=== PATIENT | female | born 1995 | race Two or more races ===

== ENCOUNTER 2018-05-18 22:42 | Emergency (ER) | payer SELFPAY ==
[2018-05-18 23:10] VITALS: O2SAT 98
[2018-05-18] MEDS ORDERED: Tdap Vaccine 0.5 ml Vial (10-64 yrs) IM ONE (23:53)
--- NOTE | 2018-05-18 23:55 | ED PDOC ---
Upper Extremity Pain/Injury Time Seen by Provider: 05/18/18 23:16 Chief Complaint (Nursing): Abnormal Skin Integrity History Per: Patient Additional Complaint(s): 22 yo F presents c/o laceration to the L 2nd digit after using a knife. Patient admits to drinking alcohol tonight. Denies any numbness, decreased range of motion or any other injury. Reports her tetanus is not up-to-date. Past Medical History Vital Signs: Last Vital Signs Temp 98.2 F 05/18/18 23:08 Pulse 89 05/18/18 23:08 Resp 16 05/18/18 23:08 BP 110/68 05/18/18 23:08 Pulse Ox 98 05/18/18 23:08 - Family History Family History: States: No Known Family Hx - Allergies Allergies/Adverse Reactions: Allergies Allergy/AdvReac Type Severity Reaction Status Date / Time No Known Allergies Allergy Verified 05/18/18 23:11 Review of Systems Constitutional: Negative for: Fever, Malaise Musculoskeletal: Negative for: Hand Pain Skin: Positive for: Other (laceration). Negative for: Rash, Lesions Neurological: Negative for: Weakness, Numbness Physical Exam - Physical Exam Comments: GENERAL APPEARANCE: Patient is awake, alert, oriented x 3, in no acute distress. SKIN: Warm, (-) rash, (-) lesions. UPPER EXTREMITY: (+) 1 cm laceration to the distal lateral aspect of L 2nd digit, (-) tenderness, (-) swelling, (-) ecchymosis, (-) crepitus, (-) deformity. Tendon function intact. (-) distal neurovascular deficit. 2 point discrimination. Remainder of hand, digits and wrist: (-) injury. - ECG O2 Sat by Pulse Oximetry: 98 Medical Decision Making Medical Decision Making: Performed by the PA Location: L 2nd digit Length: 1 cm Description: clean wound edges, no foreign bodies Distal CMS: Normal. No deficits. Neurovascularly intact. Anesthesia: Lidocaine 1% Preparation: The wound was cleaned with NS and Betadine. The area was prepped and draped in the usual sterile fashion. Exploration: The wound was explored and no foreign bodies were found. Procedure: The wound was closed with 3 5:0 nylon. There was good approximation. Post-Procedure: Good closure and hemostasis. The patient tolerated the procedure well and there were no complications. Post procedure dressing applied. Advised to follow up with primary care physician or referral provided in 1-2 days without fail. Instructed on proper wound care. Return to the emergency room at any time for any new or worsening symptoms. Patient states she fully agrees with and understands discharge instructions. States that she agrees with the plan and disposition. Verbalized and repeated discharge instructions and plan. I have given the patient opportunity to ask any additional questions. Disposition - Clinical Impression Clinical Impression: Finger laceration - Patient ED Disposition Is Patient to be Admitted: No Counseled Patient/Family Regarding: Diagnosis, Need For Followup - Disposition Referrals: Jamie Gill MD [Medical Doctor] - Disposition: Routine/Home Disposition Time: 00:00 Condition: STABLE Additional Instructions: Thank you for letting us take care of you today. You were treated for finger laceration. The emergency medical care you received today was directed at your acute symptoms. Clean wound with regular soap and water. Have sutures removed after 7 days. Return to the Emergency Department if your symptoms worsen, do not improve, or if you have any other problems. Please contact your doctor in 2 days for re-evaluation and follow up / or call one of the physicians/clinics you have been referred to that are listed on the Patient Visit Information form that is included in your discharge packet. Bring any paperwork you were given at discharge with you along with any medications you are taking to your follow up visit. Our treatment cannot replace ongoing medical care by a primary care provider (PCP) outside of the emergency department. 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
[2018-05-19] MEDS ORDERED: Tdap Vaccine 0.5 ml Vial (10-64 yrs) IM ONE (00:16)
[2018-05-19 00:38] VITALS: BP 122/70; PULSE 72; RESP 18; TEMP 98
== END 2018-05-19 00:40 | disposition home or self-care (01) ==
LOC: H.ER 22:42
DX: S61.211A Laceration without foreign body of left index finger without damage to nail, initial encounter (principal); W26.0XXA Contact with knife, initial encounter; Z23 Encounter for immunization